=== PATIENT | female | born 1960 | race Caucasian/White ===

== ENCOUNTER 2017-08-25 13:00 | Emergency (ER) | payer SELFPAY ==
[~2017-08-25] VITALS: Ht 162.6 cm; Wt 72.6 kg
[2017-08-25] MEDS ORDERED: KETOROLAC TROMETH 30 MG/ML 1ML VIAL IV ONE (16:45)
[2017-08-25] MEDS ORDERED: cefTRIAXone 1GM/10ml IVPUSH 10 ML IV ONE (16:45)
[2017-08-25 17:00] VITALS: BP 132/70
== END 2017-08-25 17:42 | disposition home or self-care (01) ==
LOC: ER 13:00
DX: K04.7 Periapical abscess without sinus (principal); I10 Essential (primary) hypertension; F17.210 Nicotine dependence, cigarettes, uncomplicated
CPT/HCPCS: 96374; 96375; 99284; J1885